=== PATIENT | male | born 1990 | race Caucasian/White ===

== ENCOUNTER → 2019-02-26 | Outpatient (CLI) | payer OTHER ==
--- NOTE | 2019-02-27 18:26 | MR ---
EXAMINATION TYPE: MR knee RT wo con DATE OF EXAM: 02/26/2019 COMPARISON: Outside radiographs 02/18/2019 HISTORY: 28-year-old male Right knee pain TECHNIQUE: Multiplanar, multisequence imaging of the right knee is performed without IV contrast. FINDINGS: Post surgical changes of ACL graft reconstruction utilizing bone patellar tendon bone graft. The lisandra t material shows normal low signal. There is a large multilocular ganglion cyst along the posterior and posterolateral aspect of the dist al femur. This seems to arise from the region of the intercondylar notch near the proximal ACL graft fibers, adjacent to the femoral tunnel. No abnormal tunnel widening is identified. The ganglion cyst extends along the posterolateral distal femoral metadiaphysis measuring up to 2.3 cm AP by 3.2 cm wid e by 6.8 cm craniocaudal. PCL appears intact. MCL and LCL complex appear intact. The posterior root of the lateral meniscus is not well seen and at least a partial tear is suggested. Cook's ligament is visualized and intact. There is also a small radial tear involving the body o f the lateral meniscus. Scattered mild superficial cartilage irregularity within the lateral compartm ent with overall maintained cartilage volume. Extensive tear of the posterior horn and body of the medial meniscus with moderate irregular cartilag e loss along the mid peripheral medial compartment. Focal intracondylar spur along the medial trochlear facet but with overall preserved patellofemoral c ompartment articular cartilage. Mild tendinotic signal at the quadriceps insertion. Extensor mechanism of otherwise intact postsurgic al changes of prior bone patellar tendon bone graft harvesting. Trace knee joint effusion with mild chronic synovitis. No Lomeli's cyst. Normal popliteal artery anatomy. Mild diffuse muscular atrophy. No suspicious bone marrow replacemen t. IMPRESSION: 1. Intact bone patellar tendon bone ACL graft reconstruction. 2. However, there is a large multilocular ganglion cyst likely arising from the proximal graft fibers adjacent to the inferior aspect of the femoral tunnel. This cyst extends posterolaterally and superi car up to the level of the distal femoral metadiaphysis measuring up to 6.8 x 3.2 x 2.3 cm. No abnor mal widening of the femoral or tibial bone tunnels. 3. Extensive tear of the posterior horn and body of the medial meniscus with moderate focal degenerat katia change along the mid peripheral aspect of the medial compartment. 4. Posterior root of the lateral meniscus is not well seen. At least a partial tear is suggested here . Cook's ligament is visualized and intact. Additional small inner margin radial tear of the body of the lateral meniscus.
== END | disposition home or self-care (01) ==
LOC: RADMRIMAIN 07:02
PROVIDERS: ATTEND Orthopaedic Surgery
DX: S83.241A Other tear of medial meniscus, current injury, right knee, initial encounter (principal); M67.461 Ganglion, right knee; M17.11 Unilateral primary osteoarthritis, right knee; S83.281A Other tear of lateral meniscus, current injury, right knee, initial encounter

== ENCOUNTER → 2019-03-07 | Outpatient (CLI) | payer OTHER ==
[2019-03-07 10:46] LABS: Basophils # (A) 0.1 k/uL (0-0.2); Basophils % (A) 1 %; Eosinophils # (A) 0.2 k/uL (0-0.7); Eosinophils % (A) 2 %; HCT 47.1 % (39.0-53.0); HGB 15.3 gm/dL (13.0-17.5); Lymphocytes # (A) 2.6 k/uL (1.0-4.8); Lymphocytes % (A) 30 %; MCH 29.6 pg (25.0-35.0); MCHC 32.4 g/dL (31.0-37.0); MCV 91.2 fL (80.0-100.0); Monocytes # (A) 0.5 k/uL (0-1.0); Monocytes % (A) 6 %; Neutrophils # (A) 5.1 k/uL (1.3-7.7); Neutrophils % (A) 58 %; Platelet Count 322 k/uL (150-450); RBC 5.16 m/uL (4.30-5.90); WBC 8.8 k/uL (3.8-10.6)
[2019-03-07 11:01] LABS: Potassium 5.3 mmol/L (3.5-5.1)
== END | disposition home or self-care (01) ==
LOC: LABPAT 09:48
PROVIDERS: ATTEND Orthopaedic Surgery
DX: Z01.812 Encounter for preprocedural laboratory examination (principal); M23.91 Unspecified internal derangement of right knee
CPT/HCPCS: 36415; 80051; 85025

== ENCOUNTER 2019-03-26 09:41 | Day surgery (SDC) | payer OTHER ==
[2019-03-21 17:04] VITALS: BMI 26.2
--- NOTE | 2019-03-25 13:58 | HP ---
HISTORY AND PHYSICAL DATE OF SURGERY: 03/26/2019 Pedro Schultz is a 28-year-old patient seen with progressive right knee pain. We discussed options. He elected to proceed with arthroscopy. Consent was obtained. PAST MEDICAL HISTORY: Noncontributory. PAST SURGICAL HISTORY: Right knee arthroscopy with ACL reconstruction. DAILY MEDICATIONS: None. ALLERGIES: None. SOCIAL HISTORY: Smokes 1 pack of cigarettes daily. PHYSICAL EVALUATION OF THE RIGHT KNEE: Range of motion 0 to 130 degrees. Tenderness along the medial joint line, tenderness along the lateral joint line. Positive medial Tsering's. Positive lateral Tsering's, +1 Sanam's, good endpoint. Collateral ligaments stable. Distal neurovascular exam intact. RADIOGRAPHS OF THE RIGHT KNEE: Revealed mild osteoarthritis with evidence of previous ACL reconstruction. Right knee MRI revealed medial meniscal tear. IMPRESSION: Internal derangement, right knee with medial meniscal tear. PLAN: Right knee arthroscopy with partial meniscectomy and debridement. MMODL / IJN: [id number] /
[~2019-03-26 09:41] MED LIST: DEXAMETHASONE SOD PHOSPHATE 10 MG/ML 1 ML VIAL IV ONE; LACTATED RINGERS 1,000 ML IV SCH; LIDOCAINE 1% 20 ML VIAL (10MG/ML) FOR IV START INTRADERMA PRN; MIDAZOLAM 2 MG/2 ML VIAL IV PRN; ONDANSETRON 4 MG/2 ML VIAL IVP ONE; SCOPOLAMINE 1.5MG/72HR PATCH TRANSDERM ONE; ceFAZolin IN SWFI 2 GM/20 ML SYRINGE IVP ONE
[2019-03-26] MEDS ORDERED: KETOROLAC 30 MG/ML 1 ML VIAL ONE (11:11)
[2019-03-26] MEDS ORDERED: PROPOFOL 10 MG/ML 20 ML VIAL IV ONE (11:11)
[2019-03-26] MEDS ORDERED: fentaNYL (PF) 50 MCG/ML 2 ML AMP ONE (11:11)
[2019-03-26] MEDS ORDERED: MIDAZOLAM 2 MG/2 ML VIAL ONE (11:11)
[2019-03-26] MEDS ORDERED: LIDOCAINE 1% INJ 10MG/ML (20 ML MDV) ONE (11:11)
[2019-03-26] MEDS ORDERED: BUPIVACAIN-EPI 0.5%-1:200,000 30 ML VIAL INTRAARTIC ONE (11:35)
[2019-03-26 12:09] VITALS: TEMP 97
--- NOTE | 2019-03-26 12:12 | P.OP ---
Date of Procedure: 03/26/19 Preoperative Diagnosis: Internal derangement right knee Postoperative Diagnosis: 1. Tear medial meniscus right knee 2. Grade 4 chondromalacia femoral sulcus right knee 3. Partial ACL graft tear right knee 4. Reactive synovitis medial, lateral and suprapatellar compartments right knee Procedure(s) Performed: 1. Arthroscopic partial medial meniscectomy right knee 2. Arthroscopic chondroplasty femoral sulcus right knee 3. Arthroscopic microfracture femoral sulcus right knee 4. Arthroscopic debridement ACL graft tear right knee 5. Arthroscopic partial synovectomy medial, lateral and suprapatellar compartments right knee Anesthesia: GETA, local Surgeon: Freedom Alonzo Estimated Blood Loss (ml): 5 Pathology: none sent Condition: stable Disposition: PACU Indications for Procedure: 28-year-old patient seen with progressive right knee pain. After treatment options were discussed, he elected to proceed with arthroscopy. Operative Findings: See description of procedure Description of Procedure: Patient was taken to the operative suite. Patient underwent a general anesthetic by the department of anesthesia. Patient was given preoperative antibiotics. The right lower extremity was placed in a well-padded arthroscopic leg thayer. The right leg was prepped and draped in the normal sterile orthopedic fashion. A lateral parapatellar and suprapatellar incision was made. Trochars were inserted. Arthroscopy was initiated. Suprapatellar pouch revealed diffuse thick reactive synovitis. The patellofemoral joint appeared to articulate congruently. There was an area of grade 4 chondromalacia femoral harrison lcus with bony exposure and peripheral osteochondral flap tears. The scope was guided into the medial gutter. No loose bodies or plica were identified The scope was then guided into the medial compartment. A medial parapatellar incision was made. Trocar inserted followed by probe. There was a radial tear involving the posterior horn of the medial meniscus. There was some residual suture material in that area to consistent with the previous repair. There were some grade 1 chondromalacia changes of the femoral condyle. There was reactive synovitis anteriorly. I performed a partial medial meniscectomy down to stable tissue. I debrided the residual suture material out. I performed a partial synovectomy decompressing the reactive synovitis. The shaver was removed. There was good stability about the residual meniscus. There was good decompression of synovitis. Scope and probe were then guided into the intercondylar notch. Cruciates were identified, probed and found to be stable. It did appear to be a graft with history of previous ACL reconstruction. There was some tearing anteriorly. I debrided that with a motorized shaver. The residual graft appears stable. There was a +1/2 drawer and Sanam both a good endpoints.. The scope and probe were then guided into lateral compartment. The lateral meniscus was stable. The lateral femoral condyle was unremarkable. T here was some reactive synovitis anteriorly. I performed a partial lateral meniscectomy lateral compartment decompressing reactive synovitis. There was good decompression of synovitis. The scope was in guided back into the suprapatellar compartment. I introduced a motorized shaver into the suprapatellar compartment. I performed a chondroplasty femoral sulcus along its periphery. I performed a partial synovectomy decompressing the reactive synovitis. I removed the shaver. I introduced a microfracture awl. I performed a microfracture to the area of grade 4 chondromalacia femoral sulcus penetrating the bone with resultant bleeding at the microfracture site. I took one more look around the entire knee, no residual debris. Instruments were now removed from the joint. The joint was infiltrated with .25% Marcaine. Steri- Strips were applied to the portal sites. Sterile dressings were applied. The patient was placed into a XIMENA hose. No tourniquet was utilized. The patient was awakened, transferred to a bed and taken to recovery stable satisfactory condition.
[2019-03-26] MEDS: HYDROmorphone 0.5 MG/0.5 ML SYRINGE IVP PRN ×4 (12:13→12:40)
[2019-03-26] MEDS ORDERED: LACTATED RINGERS 1,000 ML IV ONE ×2 (12:43)
[2019-03-26 13:06] VITALS: RESP 18
[2019-03-26 13:25] VITALS: BP 132/81; PULSE 65
== END 2019-03-26 13:44 | disposition home or self-care (01) ==
LOC: OR 09:41
PROVIDERS: ATTEND Orthopaedic Surgery
DX: S83.241A Other tear of medial meniscus, current injury, right knee, initial encounter (principal); X58.XXXA Exposure to other specified factors, initial encounter; M94.261 Chondromalacia, right knee; T84.89XA Other specified complication of internal orthopedic prosthetic devices, implants and grafts, initial encounter; M65.861 Other synovitis and tenosynovitis, right lower leg; F17.210 Nicotine dependence, cigarettes, uncomplicated
CPT/HCPCS: 29881; 29879; 84132; J2250; J1100; J2405; J2001; J3010; J1885; J2704; J1170; J0690

== ENCOUNTER → 2020-07-07 | Outpatient (CLI) | payer SELFPAY | END | disposition home or self-care (01) | LOC: LABWHC1 12:23 | PROVIDERS: ATTEND Emergency Medicine | DX: Z20.828 Contact with and (suspected) exposure to other viral communicable diseases (principal) | CPT/HCPCS: U0003; C9803 ==

== ENCOUNTER → 2023-10-10 | Outpatient (CLI) | payer OTHER ==
--- NOTE | 2023-10-13 15:21 | MR ---
EXAMINATION TYPE: MR foot LT wo con DATE OF EXAM: 10/10/2023 COMPARISON: None HISTORY: Lt ankle into mid foot pain TECHNIQUE: Multiplanar, multisequence images of the left foot were acquired without contrast. FINDINGS: BONES/CARTILAGE/JOINT: Bone marrow signal is normal. Normal variant calcaneal vascular remnants. Articular cartilage is normal. Small tibiotalar joint effusion. LIGAMENTS: High-grade, partial-thickness tear of the anterior talofibular ligament, small amount of overlying ed jayjay. Spring ligament is normal. Lisfranc ligament normal. Normal plantar plates. TENDONS: Flexor tendons are normal. Extensor tendons are normal. Peroneal tendons are normal. SOFT TISSUES: No bursal distention. No intermetatarsal bursa or soft tissue mass. Sinus tarsi is normal. Plantar fascia is normal. Neurovascular structures are normal. IMPRESSION: 1. Normal bone marrow signal. 2. Grade 2 ATFL sprain.
== END | disposition home or self-care (01) ==
LOC: RADMRIMAIN 05:53
PROVIDERS: ATTEND Podiatrist Foot & Ankle Surgery
DX: M24.872 Other specific joint derangements of left ankle, not elsewhere classified (principal)